=== PATIENT | male | born 1960 | race African-American/Black ===

== ENCOUNTER 2020-09-22 19:35 | Emergency (ER) | payer BC ==
[~2020-09-22] VITALS: Ht 175.3 cm; Wt 108.9 kg
[2020-09-22 19:43] VITALS: Ht 175.3 cm; Wt 108.9 kg
[2020-09-22 20:25] LABS: BASOPHIL % 0.3 % (0.2-1.5); PLATELET COUNT 229 x10^3mcL (152-348)
[2020-09-22 20:44] LABS: CALCIUM 9.6 mg/dL (8.5-10.1); CARBON DIOXIDE 28.7 mmol/L (21-32); CHLORIDE SERUM 101 mmol/L (98-107); CREATININE SERUM 1.2 mg/dL (0.7-1.3); GFR1 > 60 mL/min; GLUCOSE SERUM 119 mg/dL (74-106); POTASSIUM SERUM 4.7 mmol/L (3.5-5.1); SODIUM SERUM 138 mmol/L (136-145)
[2020-09-22 20:48] LABS: ALBUMIN 4.4 g/dL (3.4-5.0); ALKALINE PHOSPHATASE 150 U/L (46-116); ALT/SGPT 38 U/L (16-63); AMYLASE 66 U/L (25-115); AST/SGOT 61 U/L (15-37); LIPASE 59 IU/L (73-393)
[2020-09-22 20:49] LABS: TOTAL PROTEIN, SERUM 8.3 g/dL (6.4-8.2)
[2020-09-22 21:16] LABS: BILIRUBIN TOTAL 0.8 mg/dL (0.20-1.00)
[2020-09-22 21:59] LABS: microscopic required? YES; urine erythrocyte TRACE (NEGATIVE)
[2020-09-22 22:38] VITALS: BP 152/84
== END 2020-09-22 23:15 | disposition home or self-care (01) ==
LOC: ED 19:35
PROVIDERS: Specialist
DX: N23 Unspecified renal colic (principal); I10 Essential (primary) hypertension
CPT/HCPCS: J1885; J2405; J7030